=== PATIENT | male | born 1965 | race Caucasian/White ===

== ENCOUNTER 2021-03-27 02:33 | Emergency (ER) | payer SELFPAY ==
[~2021-03-27] VITALS: Ht 167.6 cm; Wt 75.7 kg
--- NOTE | 2021-03-27 02:45 | NUR ---
PT SARA FROM HOME C/O SOB SINCE TODAY, TESTED POSITIVE YESTERDAY FOR COVID "HURTS TO BREATHE". PT BROUGHT IN A GURNEY ALERT AND ORIENTED X3.
--- NOTE | 2021-03-27 02:51 | NUR ---
XRAY AT BEDSIDE.
[2021-03-27] MEDS ORDERED: PRED50TA PO (03:15)
[2021-03-27] MEDS ORDERED: AZIT250T13 PO (03:15)
[2021-03-27 03:19] VITALS: BP 129/77
--- NOTE | 2021-03-27 03:19 | NUR ---
Patient discharged to home in stable condition. Written and verbal after care instructions given. Patient verbalizes understanding of instruction.
== END 2021-03-27 03:23 | disposition home or self-care (01) ==
LOC: ER 02:38
DX: U07.1 COVID-19 (principal); J12.82 Pneumonia due to coronavirus disease 2019; Z79.899 Other long term (current) drug therapy
CPT/HCPCS: 71045-TC